=== PATIENT | male | born 1945 | race Caucasian/White ===

== ENCOUNTER 2016-10-27 13:30 | Outpatient (RCR) | payer MEDICARE, OTHER ==
[~2016-10-27 13:30] MED LIST: ALBU6.7H IH; ASPI-860 PO; ATOR40TA2 PO; BIOF1TAB PO; BUPR150T4 PO; CHOL200025 PO; CTLP20T PO; CYAN250010 PO; EXEN2VIA SQ; FL025NA25 NS; FURO40TA4 PO; IRBE300T18 PO; LOSA100T8 PO; MECL-105 PO; MELO15TA14 PO; MNTL10T PO; MULT1TAB63 PO; NIAC500T24 PO; NYST30OI6 TOP; OMG1KC PO; PIOG1TAB PO
== END 2016-12-07 | disposition home or self-care (01) ==
LOC: DT 13:30
PROVIDERS: ATTEND Family Medicine
DX: E11.9 Type 2 diabetes mellitus without complications (principal); Z71.3 Dietary counseling and surveillance; Z79.84 Long term (current) use of oral hypoglycemic drugs; Z68.43 Body mass index [BMI] 50.0-59.9, adult
CPT/HCPCS: 97802

== ENCOUNTER → 2017-01-04 | Outpatient (CLI) | payer MEDICARE, OTHER | LOC: LAB 14:23 | PROVIDERS: ATTEND Family Medicine | DX: R19.7 Diarrhea, unspecified (principal) | CPT/HCPCS: 83993; 87507 ==